=== PATIENT | female | born 1985 | race Caucasian/White ===

== ENCOUNTER 2019-01-26 19:52 | Emergency (ER) | payer MEDICAID, SELFPAY ==
[2019-01-26 19:54] VITALS: BP 150/79; PULSE 75; RESP 18; TEMP 36.8; O2SAT 97; BMI 37.0
--- NOTE | 2019-01-26 20:32 | RAD_ITS ---
STUDY: X-RAY - RIGHT WRIST REASON FOR EXAM: Female, 33 years old. Trauma TECHNIQUE: 3 view(s) of the wrist were obtained. COMPARISON: None. FINDINGS: Normal visualized distal radius and ulna. Normal radiocarpal articulation. Normal distal radioulnar articulation. Normal carpal bones. Normal carpal articulations. Normal carpometacarpal articulation of the thumb. Normal second through fifth carpometacarpal articulations. Normal visualized metacarpal bones. The soft tissue structures are unremarkable. RAD/Wrist min 3 Views IMPRESSION: Normal x-ray examination of the wrist. Electronically Signed: Aron Otero MD at 20:59 EST , Service support ,
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
[2019-01-26] MEDS: Diphth,Pertuss(Acell),Tet Vac 0.5 ML Vial IM (20:54)
[2019-01-26] MEDS: BACITRACIN 15 GM Tube 1 APPLIC TOPICAL (20:55)
== END 2019-01-26 22:12 | disposition home or self-care (01) ==
PROVIDERS: Emergency Provider Emergency Medicine
DX: S63.501A Unspecified sprain of right wrist, initial encounter (principal); S80.212A Abrasion, left knee, initial encounter; W17.89XA Other fall from one level to another, initial encounter; Y93.89 Activity, other specified; J30.2 Other seasonal allergic rhinitis
CPT/HCPCS: 73110; 90471; 90715; 99283

== ENCOUNTER → 2024-07-19 | Outpatient (CLI) | payer MEDICAID, SELFPAY ==
[2024-07-24 13:08] LABS: HPV APTIMA, High Risk Negative (Negative)
== END | disposition home or self-care (01) ==
PROVIDERS: Referring Provider Advanced Practice Midwife; Visit Provider Advanced Practice Midwife
DX: Z12.4 Encounter for screening for malignant neoplasm of cervix (principal)
CPT/HCPCS: 87624; 88175; G0145

== ENCOUNTER → 2024-08-11 | Outpatient (CLI) | payer MEDICAID, SELFPAY ==
--- NOTE | 2024-08-11 13:00 | BI_ITS ---
EXAM: SCRN MAMM (CAD)W/JAHAIRA BILAT 08/11/2024 CLINICAL HISTORY: F, Age 38 y/o , BREAST CANCER SCREENING TECHNIQUE: Bilateral screening digital breast tomosynthesis with 2D and 3D images. Computer aided detection. COMPARISON: Baseline examination, no priors FINDINGS: TISSUE DENSITY: The breast tissue is composed of scattered area of fibroglandular density. Bilateral Breast Mammographic Findings: There is a mass in the upper-outer right breast at middle depth. No significant masses, calcifications or other abnormalities are identified in the left breast. BI/SCRN MAMM (CAD)W/JAHAIRA BILAT IMPRESSION: The mass in the upper-outer right breast at middle depth requires further evalu ation. Recommend diagnostic ultrasound of the right breast. Right Breast: BIRADS 0 Incomplete: Need additional imaging evaluation and/or pr ior mammograms for comparison.. Left Breast: BIRADS 1 NEGATIVE. OVERALL FINAL ASSESSMENT: BIRADS 0 Incomplete: Need additional imaging evaluati on and/or prior mammograms for comparison.. RECOMMENDATION: Ultrasound. A letter with findings and recommendations will be mailed to the patient. Reading Location: [id number]
--- NOTE | 2024-08-11 13:39 | US_ITS ---
PROCEDURE: THYROID 08/11/2024 REASON FOR EXAM: ENLARGED THYROID TECHNIQUE: High-frequency thyroid ultrasound, including grayscale and color-flow images. REFERENCE LINKS: TI-RADS Chart: [email or web address] TI-RADS Calculator Tool with Reference Images: [email or web address] COMPARISON: None FINDINGS: Right thyroid lobe size: 5.1 x 1.3 x 1.7 cm Left thyroid lobe size: 5.4 x 1.1 x 1.7 cm Isthmus: 0.2 cm Background parenchymal echotexture is homogeneous. There are colloid cysts measuring 4 mm in the right lobe and 8 mm in the left lobe. US/Thyroid IMPRESSION: No suspicious thyroid nodularity. Reading Location: [id number]
--- OUTSIDE RECORDS SUMMARY | 2024-08-11 18:44 | XMS RPT_ITS | CCD ---
Author Organization [facility] Inform ion Partnership [facility] Care Team Providers Care Manager College Name Role Phone Unavailable Primary Care Provider CHRISTINE Russell Referring Unavailable Unavailable Primary Care Provider Unavailolvin e Care Physician, No Primary Primary Care Provider Unavailable Care Physician, No Primary Referring Provider Un available Jonas CARRIZALES, Digna Attending Provider Digna Mcdaniel CNM Referring Provider [phone] Care Physician, No Primary Primary Care Unava ilable Care Physician, No Primary Referring Unava ilable Digna Mcdaniel Attending Unavailable Care Physician, No Primary Primary Care Unava ilable Digna Mcdaniel Attending Unavailable Digna Mcdaniel Referring Unavailable Care Physician, No Primary Primary Care Unava ilable Digna Mcdaniel Attending Unavailable Digna Mcdaniel Referring Unavailable Allergies Allergy Classification Reported Allergen(s) Allergy Type Date of Onset Reaction(s) Facility (5 sources) Penicillin; Translations: [PENICILLIN] Drug Allergy 07-17-2017 [facility] (2 sources) Penicillins Allergy to substance 07-19-2024 [facility] (1 source) Penicillins Drug allergy (disorder) 07-19-2024 [facility] Medications Current Medications Medication Drug Class(es) Dates Sig (Normalized) Sig (Original) [id number] 200 actuat albuterol 0.09 mg/actuat metered dose inhaler (8 sources) beta2-Adrenergic Agonist Start: 12-02-2022 take 2 puff(s) by inhalation every four hours as needed for wheezing albuterol HFA (PROVENTIL HFA, VENTOLIN HFA) 90 mcg/actuation inhaler Indications: URI, acute Inhale 2 Puffs as instructed every 4 hours as needed for wheezing/shortnes s of breath. 1 Each 12/02/2022 Active Start: 06-08-2018 take 2 puff(s) by in halation every six hours as needed albuterol HFA (PROAIR HFA) 90 mcg/actuation inhaler Inhale 2 Puffs as instructed every 6 hours as needed. 1 Inhaler 06/08/2018 Active Comment on above: Inhale 2 Puffs as in structed every 6 hours as needed. Inhale 2 Puffs as in structed every 4 hours as needed for wheezing/shortness of breath. Cetirizine (4 sources) Histamine-1 Receptor Antagonist cetirizine HCl (ZYRTEC ORAL) Take by mouth. Active cetirizine HCl ( ZYRTEC ORAL) Take by mouth. 0 Active Comment on above: Take by mouth. erythromycin 0.005 mg/mg ophthalmic ointment (1 source) Macrolide, Macrolide Antimicrobial Start: 08-23-19 End: 08-30-19 erythromycin (ROMYCIN) 5 mg/gram (0.5 %) ophthalmic ointment Use 1 application in the left eye four times daily for 7 days. 3.5 g 0 08/23/2023 08/30/2023 Active fluticasone propionate 0.05 mg/actuat metered dose nasal spray (4 sources) Corticosteroid Start: 06-09-19 take 2 spray(s) by mouth once daily fluticasone (FLONASE) 50 mcg/actuation nasal spray Use 2 Sprays in each nostril once daily. Rinse mouth after use. 1 Bottle 06/08/2018 Active Comment on above: Use 2 Sprays in each nostril once daily. Rinse mouth after use. loratadine 10 mg oral tablet (2 sources) Start: 09-17-19 Loratadine (Allergy Relief (Loratadine)) 10 MG tablet Active 10 mg PO NEEDED as needed for Allergies September 16, 2016 12:00am Multivitamin 1 EACH tablet (2 sources) Start: 01-27-20 19 Multivitamin 1 EACH tablet Active 1 NMA PO DAILY January 26, 2019 1:00am naproxen sodium 220 mg oral capsule (2 sources) Nonsteroidal Anti-inflammatory Drug Start: 01-27-20 19 take 2 capsules by mouth once daily Naproxen Sodium 220 MG capsule Active 440 mg PO DAILY January 26, 2019 1:00am predniSONE 20 mg oral tablet (1 source) Start: 12-03-19 End: 12-08-19 23 take 2 tablets by mouth once daily predniSONE (DELTASONE) 20 mg tablet Indications: URI, acute Take 2 tablets by mouth once daily for 5 days. 10 tablet 0 12/02/2022 12/07/2022 Active Comment on above: Take 2 tablets by mo uth once daily for 5 days. Completed/Discontinued Medications Medication Drug Class(es) Dates Sig (Normalized) Sig (Original) benzonatate 100 mg oral capsule (2 sources) Non-narcotic Antitussive Start: 12-02-2022 End: 05-17-2023 take 2 capsules by mouth three times daily as needed benzonatate (TESSALON PERLE) 100 mg capsule Indications: URI, acute Take 2 capsules by mouth three times daily as needed. 30 capsule 0 12/02/2022 05/17/2023 Discontinued Comment on above: Take 2 capsules by m outh three times daily as needed. norethindrone 0.35 mg oral tablet (2 sources) Start: 09-16-2016 End: 09-23-2016 take 1 tablet by mouth once daily Norethindrone (Contraceptive) (Sharobel) 0.35 MG tablet Discontinued 0.35 mg PO DAILY September 16, 2016 12:00am September 23, 2016 12:46pm Problems Active Problems Problem Classification Problem Date Documented Date Episodic/Chronic Immunizations and screening for infectious disease (1 source) Exposure to streptococcal pharyngitis; Translations: [Contact with and (suspected) exposure to other bacterial communicable diseases] 05-17-2023 Episodic Inflammation; infection of eye (except that caused by tuberculosis or sexually transmitteddisease) (1 source) Hordeolum externum of upper eyelid of left eye; Translations: [Hordeolum externum left upper eyelid] 08-23-2023 Episodic Menstrual disorders (3 sources) Menorrhagia; Translations: [Excessive and frequent menstruation with regular cycle] Onset: 07-28-2024 07-19-2024 Chronic Nonmalignant breast conditions (5 sources) Breast lump; Translations: [Unspecified lump in unspecified breast] Onset: 08-08-2024 07-19-2024 Episodic Other screening for suspected conditions (not mental disorders or infectious disease) (2 sources) Encounter for screening for malignant neoplasm of cervix; Translations: [Encounter for screening for nutritional disorder] Onset: 07-25-2024 Episodic Other upper respiratory infections (1 source) Sore throat symptom; Translations: [Acute pharyngitis, unspecified] 05-17-2023 Episodic Sprains and strains (2 sources) Sprain of right wrist; Translations: [Unspecified sprain of right wrist, initial encounter] 01-27-2019 Episodic Thyroid disorders (3 sources) Goiter; Translations: [Nontoxic goiter, unspecified] Onset: 07-28-2024 07-19-2024 Chronic Past or Other Problems Problem Classification Problem Date Documented Da te Episodic/Chronic Unclassified (2 sources) Abrasion, left knee, initial encounter 01-27-2019 Results Test Name Value Interpretation Reference Range Facility PAP IG HPV APTIMA 16/18,45on 07-24-2024 ADEQ Comment Normal . [facility] Comment on above: Order Comment: Vlad cross Comment: [id number] Specimen Comment: No. of containers..01 ThinPrep Vial Result Comment: Sati sfactory for evaluation. Endocervical and/or squamous metaplastic cells (endocervical component) are present. Performed By: #### L 7400.0280 #### [facility] [address] [place], [place], [id number] COMM . Normal . [facility] Comment on above: Order Comment: Vlad cross Comment: [id number] Specimen Comment: No. of containers..01 ThinPrep Vial Performed By: #### L 7400.0280 #### [facility] [address] [place], [place], [id number] COMMENT Comment Normal . [facility] Comment on above: Order Comment: Vlad cross Comment: [id number] Specimen Comment: No. of containers..01 ThinPrep Vial Result Comment: This liquid based ThinPrep(R) pap test was screened with the use of an image guided system. Performed By: #### L 7400.0280 #### [facility] [address] [place], [address] DIAG Comment Normal . [facility] Comment on above: Order Comment: Vlda cross Comment: [id number] Specimen Comment: No. of containers..01 ThinPrep Vial Result Comment: NEGA TIVE FOR INTRAEPITHELIAL LESION OR MALIGNANCY. Performed By: #### L 7400.0280 #### [facility] [address] [place], [address] HPV APTIMA, HR Negative Normal Negative [facility] Comment on above: Order Comment: Speci men Comment: [id number] Specimen Comment: No. of containers..01 ThinPrep Vial Result Comment: This nucleic acid amplification test detects fourteen high- risk HPV types (16,18,31,33,35,39,45,51,52,56,58,59,66,68) without differentiation. Performed By: #### L 7400.0280 #### [facility] [address] [place], [address] HPV Karol Rfx Comment Normal . [facility] Comment on above: Order Comment: Speci men Comment: [id number] Specimen Comment: No. of containers..01 ThinPrep Vial Result Comment: Crit eria not met, HPV Genotype not performed. Performed at: - [facility] [id number] Machine Setter: Clementina Dunn MD, Phone: [phone] Performed at: = - [facility] [address] [id number] Machine Setter: Clementina Dunn MD, Phone: [phone] Performed By: #### L 7400.0280 #### [facility] [address] [place], [address] PAPSMR Comment Normal . [facility] Comment on above: Order Comment: Speci men Comment: [id number] Specimen Comment: No. of containers..01 ThinPrep Vial Result Comment: The Pap smear is a screening test designed to aid in the detection of premalignant and malignant conditions of the uterine cervix. It is not a diagnostic procedure and should not be used as the sole means of detecting cervical cancer. Both false-positive and false-negative reports do occur. Performed By: #### L 7400.0280 #### [facility] [address] [place], [place], [id number] PERFORM Comment Normal . [facility] Comment on above: Order Comment: Speci men Comment: [id number] Specimen Comment: No. of containers..01 ThinPrep Vial Result Comment: Stone Kiser, Dairy Feed Sales Consultant (ASCP) Performed By: #### L 7400.0280 #### [facility] [address] [place], [place], [address] Cervical or vaginal specimen microscopic examination by liquid based cytology (reportOrdered By: Digna Mcdaniel on 07-19-2024 Cytology report Cyto stain.thin prep Doc (Cvx/Vag) Comment . [facility] Comment on above: Criteria not met, HP V Genotype not performed.Performed at: - [facility] [id number] Director: Clementina Dunn MD, Phone: [phone] at: =[facility] [id number] Director: Clementina Dunn MD, Phone: [phone] Cervical or vagninal specime n microscopic examination by cytology stain (reported asOrdered By: Digna Mcdaniel on 07-19-2024 Cytology report Cyto stain Doc (Cvx/Vag) Comment . [facility] Comment on above: The Pap smear is a s creening test designed to aid in thedetection of premalignant and malignant conditions of theuterine cervix. It is not a diagnostic procedure andshould not be used as the sole means of detecting cervicalcancer. Both false-positive and false-negative reports dooccur. Detection in cervical specim en of any of human papilloma virus (HPV) 16, 18, 31, 33,Ordered By: Digna Mcdaniel on 07-19-2024 HPV 16+18+31+33+35+39+45+51 +52+56+58+59+66+68 DNA Probe+sig amp Ql (Cvx) Negative Negative [facility] Comment on above: This nucleic acid am plification test detects fourteen high-risk HPV types (16,18,31,33,35,39,45,51,52,56,58,59,66,68)without differentiation. Laboratory - CytologyOrdered By: Digna Mcdaniel on 07-19-2024 Dairy Feed Sales Consultant Cyto stain Nom (Cvx/Vag) [ID] Comment . [facility] Comment on above: Germán Kiser Cytolog ist (ASCP) Laboratory - Miscellaneous t estsOrdered By: Digna Mcdaniel on 07-19-2024 Service comment (Unsp spec) [Interp] . . [facility] No Panel InformationOrdered By: Digna Mcdaniel on 07-19-2024 Pap Smear Specimen Adequacy Comment . [facility] Comment on above: Satisfactory for rufino luation. Endocervical and/or squamous metaplasticcells (endocervical component) are present. Web Site Administrator Office Visit Reporton 07-19-2024 Web Site Administrator Office Visit Report [facility] [address], [address] [place] [address] OFFICE VISIT Date of Service: 07/19/24 MR#: [id number] Acct: [id number] Name: NICCI QURESHI Rep #: [id number] : 1985 Provider: ALL Stallworth ams Age/Sex: 38/F Location: [facility] [place] Status: Signed Intake Vital Signs 01/26/19 19:54 07/19/24 07:13 07/19/24 07:15 Height 5 ft 7 in 5 ft 9 in 5 ft 7 in Weight: 263 lb BMI 38.8 BP 123/76 H Intake Visit 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: 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) Science Analyst Required: No Is patient in pain?: No Allergies Penicillins Allergy (Verified 07/19/24 07:14) Rash Medications ???Medication ???Instructions ???Recorded ???Confirmed ???Type loratadine 10 mg tablet (Allergy 10 mg PO PRN PRN Allergies 7 07/19/24 History Relief (loratadine)) multivitamin 1 ea PO DAILY 01/26/19 07/19/24 Hi story naproxen sodium 220 mg capsule 440 mg PO DAILY 01/26/19 07/19/24 History Is last menstrual period known: Yes Last Menstrual Period: 06/21/24 Post menopausal: No Patient : No : No Do you think of yourself as: straight/heterosexual Current gender identity: female Control Method: tubal PFSH Surgical History (Updated 07/19/24 @ 07:31 by Natalya Rowe) H/O tubal ligation Family History (Updated 07/19/24 @ 07:30 by Natalya Rowe) Grandmother Breast cancer Father Heart disease Hypertension Social History adopted: No household members: family housing: house number of children: 4 current occupational status: employed current occupation: [employer] pets and animals: Yes pets and animals: cat(s) and dog(s) history of recent travel: No sexually active: Yes Smoking Status: Former smoker second hand exposure: No alcohol intake: current alcohol intake frequency: other details: 1/ week substance use type: does not use well-balanced diet: daily or most days caffeine: Yes Type: coffee Number of servings: 1 eating out: 4 or more times/week during the past year weight has: remained stable yuliya/jain: Taoism seatbelt use: sometimes do you feel safe at home: Yes additional social history: - Luke History Elective abortions Hx Para 2 Spontaneous abortions Hx # Term Pregnancies Ectopic pregnancies Hx # Pregnancies Multiple births # of living children HPI 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 concerns with increasingly heavy menses. lasting about 8 days and still regular. does have to wear double protection the first couple days of menses. Is not bothersome enough for work up yet but will consider if it starts to get heavier or longer in duration. would also like to discuss increased weight gain. encouraged tracking food intake and activity-consider intermittent fasting. does not currently track but is active outside for work-has [employer]. discussed starting these and getting on weight management wait list with office. Last PAP: 2016 History of abnormal PAP: no Last mammogram: age 39-ordered History of abnormal mammogram: no Colon cancer screening: age 44 Other preventative health care screenings: ordered. Female Reproductive History Last Menstrual Period: 06/21/24 Cycle Length: 21-35 Bleeding Duration: 8 Frequency of changing protection: 4 hours Questions: metorrhagia: No, sexually active: Yes, dyspareunia: No and PCB: No ROS Const Constitutional: Reports system reviewed and no additional complaints, except as documented Cardio Card: Reports system reviewed and no additional complaints, except as documented Resp Resp: Reports system reviewed and no additional complaints, except as documented GI GI: Reports system reviewed and no additional complaints, except as documented : Reports system reviewed and no additional complaints, except as documented; Denies difficulty voiding, dysuria or urinary frequency Skin Skin/Breast: Reports system reviewed and no additional complaints, except as documented Neuro Neuro: Reports system reviewed and no additional complaints, except as documented Psych Psych: Reports system reviewed and no additional complaints, except as documented; Denies anhedonia, anxiety or depression Exam Const General: cooperative, healthy appearing, comfortable and no acute distress Orientation: alert, awake and oriented x3 Neck Neck: normal visual inspection and full ROM Thyroid: diffusely enlarged Chest Breast inspection: normal inspection of the breasts and normal inspection of the axillae Breast palpation: normal palpation of the breasts and normal palpation of the axillae Resp Effort Inspection: normal respiratory effort, able to speak in complete sentences and symmetric chest movement G (more content not included)... Normal [facility] 08-23-2023 [facility] Office Visit (UCWSTR ) NICCI QURESHI ([id number]) 1985 F Date Time Provider Department 08/23/23 6:45 PM NAVID ANDREWS [facility] During your visit today, we recorded the following information about you: Temperature Pulse Respiration Blood pressure 97.3 degrees 63/minute 16/minute 122/63 Weight 114.8 kg Navid Andrews APRN.CNP 08/23/2023 6:52 PM Signed This note was created using NoteWriter. Subjective Nicci Qureshi is a 37 year old female. 37 year old female with no PMH presents for eye complaints. Acute onset one month ago Left upper eye lid +red bump At times uncomfortable Denies loss of vision, double vision or blurred vision Denies feelings of FB Denies fever or chills Denies drainage Denies URI sx Wear contacts and corrective lens Endorses she has allowed warm water to run on her eye, Otherwise denies seeking medical treatment for same Eye doctor is through [facility] The history is provided by the patient. No extrusion operator was used. Eye Problem This is a new problem. The current episode started 1 to 4 weeks ago. The problem occurs constantly. The problem has been unchanged. Pertinent negatives include no abdominal pain, anorexia, arthralgias, change in bowel habit, chest pain, chills, congestion, coughing, diaphoresis, fatigue, fever, headaches, joint swelling, myalgias, nausea, neck pain, numbness, rash, sore throat, swollen glands, urinary symptoms, vertigo, visual change, vomiting or weakness. Nothing aggravates the symptoms. Treatments tried: allowing warm water to run on area. The treatment provided no relief. No past medical history on file. No past surgical history on file. ALLERGIES Penicillin MEDICATIONS albuterol HFA (PROVENTIL HFA, VENTOLIN HFA) 90 mcg/actuation inhaler Inhale 2 Puffs as instructed every 4 hours as needed for wheezing/shortness of breath. cetirizine HCl (ZYRTEC ORAL) Take by mouth. albuterol HFA (PROAIR HFA) 90 mcg/actuation inhaler Inhale 2 Puffs as instructed every 6 hours as needed. fluticasone (FLONASE) 50 mcg/actuation nasal spray Use 2 Sprays in each nostril once daily. Rinse mouth after use. erythromycin (ROMYCIN) 5 mg/gram (0.5 %) ophthalmic ointment Use 1 application in the left eye four times daily for 7 days. No family history on file. Social History Tobacco Use Smoking status: Never Smokeless tobacco: Never Review of Systems Constitutional: Negative for chills, diaphoresis, fatigue and fever. HENT: Negative for congestion and sore throat. Eyes: Negative for photophobia, pain, discharge, redness, itching and visual disturbance. Bump left upper eyelid Respiratory: Negative for cough. Cardiovascular: Negative for chest pain. Gastrointestinal: Negative for abdominal pain, anorexia, change in bowel habit, nausea and vomiting. Musculoskeletal: Negative for arthralgias, joint swelling, myalgias and neck pain. Skin: Negative for rash. Neurological: Negative for vertigo, weakness, numbness and headaches. Objective BP 122/63 Pulse 63 Temp 36.3 ?C (97.3 ?F) Resp 16 Wt 114.8 kg (253 lb 1.4 oz) SpO2 97% Physical Exam Vitals and nursing note reviewed. Constitutional: General: She is not in acute distress. Appearance: Normal appearance. She is normal weight. She is not ill-appearing, toxic-appearing or diaphoretic. HENT: Head: Normocephalic and atraumatic. Right Ear: Ear canal and external ear normal. Left Ear: Ear canal and external ear normal. Nose: Nose normal. No congestion or rhinorrhea. Mouth/Throat: Mouth: Mucous membranes are moist. Pharynx: No oropharyngeal exudate or posterior oropharyngeal erythema. Eyes: General: Right eye: No discharge. Left eye: No discharge. Extraocular Movements: Extraocular movements intact. Conjunctiva/sclera: Conjunctivae normal. Pupils: Pupils are equal, round, and reactive to light. Comments: Left upper eyelid with external hordeolum noted NO drainage NO streaking No crepitus Vision grossly intact EOM intact Cardiovascular: Rate and Rhythm: Normal rate and regular rhythm. Pulses: Normal pulses. Heart sounds: Normal heart sounds. No murmur heard. No friction rub. Pulmonary: Effort: Pulmonary effort is normal. No respiratory distress. Breath sounds: Normal breath sounds. No stridor. No wheezing, rhonchi or rales. Chest: Chest wall: No tenderness. Abdominal: General: Abdomen is flat. There is no distension. Palpations: Abdomen is soft. There is no mass. Tenderness: There is no abdominal tenderness. There is no right CVA tenderness, left CVA tenderness, guarding or rebound. Hernia: No hernia is present. Musculoskeletal: General: No swelling, tenderness, deformity or signs of injury. Normal range of motion. Cervical back: Normal range of motion and neck supple. No rigidity. Right lower leg: No edema. Left low (more content not included)... Normal [facility] 05-17-2023 [facility] Office Visit (UCWSTR ) NICCI QURESHI ([id number]) 1985 F Date Time Provider Department 05/17/23 9:15 AM ROGE VENCES [facility] During your visit today, we recorded the following information about you: Temperature Pulse Respiration Blood pressure 97.4 degrees 80/minute 21/minute 122/78 Weight 119.5 kg Roge Vences MD 05/17/2023 9:40 AM Signed Patient presents with: Sore Throat HPI: Feeling sore throat for a couple days. Her sons tested positive for strep throat this morning. Positive symptoms: mild Cough, Sore throat, mild Nasal Congestion, Negative symptoms: Fever, Chills, Vomiting, Diarrhea, OTC: tea No past medical history on file. MEDICATIONS: Current Outpatient Medications Medication Sig albuterol HFA (PROVENTIL HFA, VENTOLIN HFA) 90 mcg/actuation inhaler Inhale 2 Puffs as instructed every 4 hours as needed for wheezing/shortness of breath. cetirizine HCl (ZYRTEC ORAL) Take by mouth. albuterol HFA (PROAIR HFA) 90 mcg/actuation inhaler Inhale 2 Puffs as instructed every 6 hours as needed. fluticasone (FLONASE) 50 mcg/actuation nasal spray Use 2 Sprays in each nostril once daily. Rinse mouth after use. No current facility-administered medications for this visit. ALLERGIES: ALLERGIES Allergen Reactions Penicillin Rash VITALS: BP 122/78 Pulse 80 Temp 36.3 ?C (97.4 ?F) Resp 21 Wt 119.5 kg (263 lb 7.2 oz) SpO2 98% PHYSICAL EXAM: GEN: Pleasant, in no acute distress. HEENT: PERRL, EOMI, conjunctiva clear Ears: canals clear. TMs without erythema, bulge, or effusion Sinuses: non-tender frontal sinus, non-tender maxillary sinuses Throat: moist mucous membranes, mild erythema, no exudate Neck: supple, no thyromegaly, no lymphadenopathy HEART: regular rate and rhythm, no murmurs LUNGS: clear to auscultation, no wheezes or crackles, no increased WOB ASSESSMENT/PLAN: 1. Sore throat - ICD9: 462, ICD10: J02.9 (primary diagnosis) 2. Exposure to strep throat - ICD9: V01.89, ICD10: Z20.818 Would like to rule out strep throat. - STREP A MOLECULAR (POC) - negative. Expectant management. Roge Vences MD Allergies As of Date: 05/17/2023 Noted Allergy Reaction PENICILLIN 07/17/2017 2 - Rash Date Reviewed: 05/17/2023 Reviewed by: Bebe Craig MA - Fully Assessed Reason for Visit: Sore Throat [200] Primary Visit Diagnosis:Sore throat [J02.9] Other Visit Diagnosis:Exposure to strep throat [Z20.818] Order(s):STREP A MOLECULAR (POC) [6350749] Order #: [id number]. #:[id number] Prescriptions as of 05/17/2023 - albuterol HFA (PROVENTIL HFA, VENTOLIN HFA) 90 mcg/actuation inhaler Inhale 2 Puffs as instructed every 4 hours as needed for wheezing/shortness of breath. - cetirizine HCl (ZYRTEC ORAL) Take by mouth. - albuterol HFA (PROAIR HFA) 90 mcg/actuation inhaler Inhale 2 Puffs as instructed every 6 hours as needed. - fluticasone (FLONASE) 50 mcg/actuation nasal spray Use 2 Sprays in each nostril once daily. Rinse mouth after use. Problem List As Of Date: 05/17/2023 (None) Medications Discontinued During This Encounter Prescriptions - benzonatate (TESSALON PERLE) 100 mg capsule (Discontinued) Reported on 05/17/2023 Encounter Status:Closed by ROGE VENCES on 05/17/23 Normal [facility] STREP A MOLECULAR (POC)on Procedural Control Valid [facility] St[facility] (POCT) [facility] Telephone (UCWSTR) NICCI QURESHI ([id number]) 1985 F Date Time Provider Department 12/04/22 LARISA LIANG During your visit today, we recorded the following information about you: Manny Henry MA 12/04/2022 9:39 AM Signed ----- Message from Larisa Liang APRN.COOLER WORKER sent at 12/04/2022 9:05 AM EDT ----- Please advise patient the COVID, flu, and RSV test is negative. (Not viewed in MyChart). Manny Henry MA 12/04/2022 9:41 AM Signed Left VM instructing patient to return call to receive results. Manny Henry MA Allergies As of Date: 12/04/2022 Noted Allergy Reaction PENICILLIN 07/17/2017 2 - Rash Date Reviewed: 12/02/2022 Reviewed by: Christine Torres APRN.COOLER WORKER - Fully Assessed Reason for Visit: Results [95] Prescriptions as of 12/04/2022 - predniSONE (DELTASONE) 20 mg tablet Take 2 tablets by mouth once daily for 5 days. - benzonatate (TESSALON PERLE) 100 mg capsule Take 2 capsules by mouth three times daily as needed. - albuterol HFA (PROVENTIL HFA, VENTOLIN HFA) 90 mcg/actuation inhaler Inhale 2 Puffs as instructed every 4 hours as needed for wheezing/shortness of breath. - cetirizine HCl (ZYRTEC ORAL) Take by mouth. - albuterol HFA (PROAIR HFA) 90 mcg/actuation inhaler Inhale 2 Puffs as instructed every 6 hours as needed. - fluticasone (FLONASE) 50 mcg/actuation nasal spray Use 2 Sprays in each nostril once daily. Rinse mouth after use. Problem List As Of Date: 12/04/2022 (None) Encounter Status:Closed by MANNY HENRY on 12/04/22 [facility] CNOVon 12-02-2022 CNOV Office Visit (UCWSTR ) NICCI QURESHI ([id number]) 1985 F Date Time Provider Department 12/02/22 5:00 PM CHRISTINE TORRES [facility] During your visit today, we recorded the following information about you: Temperature Pulse Respiration Blood pressure 98.2 degrees 86/minute 18/minute 118/82 Weight 116.8 kg Christine Torres APRN.COOLER WORKER 12/02/2022 5:52 PM Signed Subjective HPI HPI Nicci Qureshi is a 37 year old female who presents today for CC of cough, congestion, sneezing. This started 4 days ago. Has tried otc medication for relief. Symptoms are worsened by nothing. Risk factors sick exposures at home. Nonsmoker. Denies possibility of being . .Patient presents with: Cough: Cough, congestion and sneezing x 4 days History reviewed. No pertinent past medical history. No past surgical history on file. ALLERGIES Penicillin MEDICATIONS cetirizine HCl (ZYRTEC ORAL) Take by mouth. albuterol HFA (PROAIR HFA) 90 mcg/actuation inhaler Inhale 2 Puffs as instructed every 6 hours as needed. fluticasone (FLONASE) 50 mcg/actuation nasal spray Use 2 Sprays in each nostril once daily. Rinse mouth after use. No family history on file. Social History Tobacco Use Smoking status: Never Smokeless tobacco: Never Review of Systems Constitutional: Positive for malaise/fatigue. Negative for fever. HENT: Positive for congestion and sore throat. Negative for ear pain and nosebleeds. Respiratory: Positive for cough and sputum production. Negative for shortness of breath and wheezing. Cardiovascular: Negative for chest pain. Gastrointestinal: Negative for diarrhea and vomiting. Musculoskeletal: Negative for neck pain. Skin: Negative for itching and rash. Objective Blood pressure 118/82, pulse 86, temperature 36.8 ?C (98.2 ?F), temperature source Tympanic, resp. rate 18, weight 116.8 kg (257 lb 9.6 oz), SpO2 97 %. Physical Exam Constitutional: General: She is not in acute distress. Appearance: She is not toxic-appearing or diaphoretic. HENT: Head: Normocephalic and atraumatic. Right Ear: External ear normal. Nose: Nose normal. Mouth/Throat: Pharynx: Uvula midline. No pharyngeal swelling, oropharyngeal exudate, posterior oropharyngeal erythema or uvula swelling. Eyes: General: Lids are normal. No scleral icterus. Right eye: No discharge. Left eye: No discharge. Conjunctiva/sclera: Conjunctivae normal. Pupils: Pupils are equal, round, and reactive to light. Neck: Trachea: Trachea normal. Cardiovascular: Rate and Rhythm: Normal rate and regular rhythm. Heart sounds: Normal heart sounds. Pulmonary: Effort: Pulmonary effort is normal. Breath sounds: Normal breath sounds. Musculoskeletal: Cervical back: Normal range of motion and neck supple. Lymphadenopathy: Cervical: No cervical adenopathy. Right cervical: No superficial cervical adenopathy. Left cervical: No superficial cervical adenopathy. Skin: Findings: No rash. Neurological: Mental Status: She is alert and oriented to person, place, and time. ASSESSMENT/PLAN: 1. URI, acute - ICD9: 465.9, ICD10: J06.9 (primary diagnosis) - Discussed viral etiology and rationale for treatment. - Symptomatic treatment with prn analgesia - Supportive care with fluids and rest - Follow up in 3-5 days if symptoms persist or sooner if worsening of symptoms - PREDNISONE 20 MG TABLET - BENZONATATE 100 MG CAPSULE - ALBUTEROL SULFATE HFA 90 MCG/ACTUATION AEROSOL INHALER 2. Acute cough - ICD9: 786.2, ICD10: R05.1 Xray negative - XR CHEST 2V FRONTAL/LAT IMPRESSION: No acute radiographic abnormality. Dictated by : JOSÉ FAY MD - COVID AND INFLUENZA A/B AND RSV NAAT, ROUTINE - COVID NAAT, UPPER RESPIRATORY, ROUTINE - ROUTINE FLU A/B + RSV Christine Torres APRN.COOLER WORKER Allergies As of Date: 12/02/2022 Noted Allergy Reaction PENICILLIN 07/17/2017 2 - Rash Date Reviewed: 12/02/2022 Reviewed by: Christine Torres APRN.COOLER WORKER - Fully Assessed Reason for Visit: Cough [28] Cmt: Cough, congestion and sneezing x 4 days Primary Visit Diagnosis:URI, acute [J06.9] Other Visit Diagnosis:Acute cough [R05.1] Order(s):XR CHEST 2V FRONTAL/LAT [[id number]] Order #: [id number]. #:[id number] COVID AND INFLUENZA A/B AND RSV NAAT, ROUTINE [SQCVFLRS] Order #: [id number]. #:[id number] COVID NAAT, UPPER RESPIRATORY, ROUTINE [SQCOVID] Reflex Order#: [id number] (Ord#:[id number])Spec . #:[id number] ROUTINE FLU A/B + RSV [SQRTFRSV] Reflex Order#: [id number] (Ord#:[id number])Spec . #:[id number] predniSONE (DELTASONE) 20 mg tabletTake 2 tablets by mouth once daily for 5 days.Disp: 10 tabletRfl: 0 benzonatate (TESSALON PERLE) 100 mg capsuleTake 2 capsules by mouth three times daily as needed.Disp: 30 capsuleRfl: 0 albuterol HFA (PROVENTIL HFA, VENTOLIN HFA) 90 mcg/actuation inhalerInhale 2 Puff (more content not included)... Normal [facility] ROUTINE FLU A/B + RSVon 11-07 FLUAV RNA RITA+probe Ql (Unsp spec) Not detected Normal Not Detected [facility] Comment on above: Order Comment: Speci men Type: SWAB OF INTERNAL NOSE Ordering Facility: [facility] Address: [address] [place] [address] Performed By: #### 9 4500-6, RTFRSV #### [facility] CLIA [id number] [address] STATES OF [facility] FLUBV RNA RITA+probe Ql (Unsp spec) Not detected Normal Not Detected [facility] Comment on above: Order Comment: Speci men Type: SWAB OF INTERNAL NOSE Ordering Facility: [facility] Address: [address] [place] [address] Performed By: #### 9 4500-6, RTFRSV #### [facility] CLIA [id number] [address] [place] [address] [place] RSV A RNA RITA+probe Ql (Unsp spec) Not detected Normal Not Detected [facility] Comment on above: Order Comment: Speci men Type: SWAB OF INTERNAL NOSE Ordering Facility: [facility] Address: [address] [place] [address] Performed By: #### 9 4500-6, RTFRSV #### [facility] CLIA [id number] [address] [place] [address] [place] SARS-CoV-2 RNA Resp Ql RITA+p robeon 12-02-2022 SARS-CoV-2 (COVID-19) RNA RITA+probe Ql (Resp) COVID 19 RESULT: Not detected The method used is RT-PCR or an equivalent NAAT method. Reference Range (the expected result in uninfected individuals): Not detected Normal [facility] Comment on above: Performed By: #### 9 4500-6, RTFRSV #### [facility] IA [id number] [address] [place] [address] [place] XR CHEST 2V FRONTAL/LATon XR CHEST 2V FRONTAL/LAT * * *Final Repor t* * * DATE OF EXAM: Dec 02 2022 5:30PM WOX 5291 - XR CHEST 2V FRONTAL/LAT / PROCEDURE REASON: Acute cough * * * * Physician Interpretation * * * * EXAMINATION: CHEST RADIOGRAPH (2 VIEW FRONTAL and LATERAL) CLINICAL HISTORY: Acute cough MQ: XC2_6 EXAM DATE/TIME: 12/02/2022 5:30 PM COMPARISON: No relevant prior studies available. RESULT: Lines, tubes, and devices: None. Lungs and pleura: No consolidation. No lung mass. No pleural effusion. No pneumothorax. Cardiomediastinal silhouette: Normal cardiomediastinal silhouette. Bones and soft tissues: Unremarkable. IMPRESSION: No acute radiographic abnormality. Director Business Development: PSCB Transcribe Date/Time: Dec 02 2022 5:33P Dictated by : JOSÉ FYA MD This examination was interpreted and the report reviewed and electronically signed by: JOSÉ FAY MD on Dec 02 2022 5:33PM EST [id number] Normal [facility] XR Chest PA and Lateralon IMPRESSION: No acute radiographic abnormality. Director Business Development: UMESH Transcribe Date/Time: Dec 02 2022 5:33P Dictated by : JOSÉ FAY MD This examination was interpreted and the report reviewed and electronically signed by: OJSÉ FAY MD on Dec 02 2022 5:33PM EST DIVISION OF RADIOLOGY * * *Final Report* * * DATE OF EXAM: Dec 02 2022 5:30PM WOX 5291 - XR CHEST 2V FRONTAL/LAT / PROCEDURE REASON: Acute cough * * * * Physician Interpretation * * * * EXAMINATION: CHEST RADIOGRAPH (2 VIEW FRONTAL & LATERAL) CLINICAL HISTORY: Acute cough MQ: XC2_6 EXAM DATE/TIME: 12/02/2022 5:30 PM COMPARISON: No relevant prior studies available. RESULT: Lines, tubes, and devices: None. Lungs and pleura: No consolidation. No lung mass. No pleural effusion. No pneumothorax. Cardiomediastinal silhouette: Normal cardiomediastinal silhouette. Bones and soft tissues: Unremarkable. DIVISION OF RADIOLOGY Provider, [facility] - 12/02/2022 * * *Final Report* * * DATE OF EXAM: Dec 02 2022 5:30PM WOX 5291 - XR CHEST 2V FRONTAL/LAT / PROCEDURE REASON: Acute cough * * * * Physician Interpretation * * * * EXAMINATION: CHEST RADIOGRAPH (2 VIEW FRONTAL & LATERAL) CLINICAL HISTORY: Acute cough MQ: XC2_6 EXAM DATE/TIME: 12/02/2022 5:30 PM COMPARISON: No relevant prior studies available. RESULT: Lines, tubes, and devices: None. Lungs and pleura: No consolidation. No lung mass. No pleural effusion. No pneumothorax. Cardiomediastinal silhouette: Normal cardiomediastinal silhouette. Bones and soft tissues: Unremarkable. IMPRESSION IMPRESSION: No acute radiographic abnormality. Director Business Development: UMESH Transcribe Date/Time: Dec 02 2022 5:33P Dictated by : JOSÉ FAY MD This examination was interpreted and the report reviewed and electronically signed by: JOSÉ FAY MD on Dec 02 2022 5:33PM EST [facility] Radiology Study observation (narrative) Mell corbett [facility] XR Chest PA and LateralOrder ed By: [facility]cf Provider on 12-02-2022 [facility] Vital Signs Date Time Vital Sign Value Performing Clinician Facility 07-19-2024 07:15-0400 Body height 170.18 cm No Primary Care Physician [facility] 07-19-2024 07:13-0400 Body mass index (BMI) [Ratio] 38.8 kg/m2 No Primary Care Physician [facility] 07-19-2024 07:13-0400 Body weight 119.29 kg No Primary Care Physician [facility] 07-19-2024 07:13-0400 Diastolic blood pressure 76 mm[Hg] No Primary Care Physician [facility] 07-19-2024 07:13-0400 Systolic blood pressure 123 mm[Hg] No Primary Care Physician [facility] 08-23-2023 18:43-0400 Body temperature 97.3 [degF] Navid Andrews SOLE ROUNDER.COOLER WORKER Work Phone: [facility] 08-23-2023 18:43-0400 Body weight 114.8 kg Navid Andrews SOLE ROUNDER.COOLER WORKER Work Phone: [facility] 08-23-2023 18:43-0400 Diastolic blood pressure 63 mm[Hg] Navid Andrews SOLE ROUNDER.COOLER WORKER Work Phone: [facility] 08-23-2023 18:43-0400 Heart rate 63 /min Navid Andrews SOLE ROUNDER.COOLER WORKER Work Phone: [facility] 08-23-2023 18:43-0400 Respiratory rate 16 /min Navid Andrews SOLE ROUNDER.COOLER WORKER Work Phone: [facility] 08-23-2023 18:43-0400 SaO2% (BldA) [Mass fraction] 97 % Anvid Andrews SOLE ROUNDER.COOLER WORKER Work Phone: [facility] 08-23-2023 18:43-0400 Systolic blood pressure 122 mm[Hg] Navid Sheldon BARLOWCOOLER WORKER Work Phone: [facility] 05-17-2023 09:25-0400 Body temperature 97.39 [degF] Roge Vences MD Work Phone: [facility] 05-17-2023 09:25-0400 Body weight 119.5 kg Roge Vences MD Work Phone: [facility] 05-17-2023 09:25-0400 Diastolic blood pressure 78 mm[Hg] Roge Vences MD Work Phone: [facility] 05-17-2023 09:25-0400 Heart rate 80 /min Roge Vences MD Work Phone: [facility] 05-17-2023 09:25-0400 Respiratory rate 21 /min Roge Vences MD Work Phone: [facility] 05-17-2023 09:25-0400 SaO2% (BldA) [Mass fraction] 98 % Roge Vences MD Work Phone: [facility] 05-17-2023 09:25-0400 Systolic blood pressure 122 mm[Hg] Roge Vences MD Work Phone: [facility] Encounters Encounter Date Encounter Type Care Provider Facility Start: 08-11-2024 ambulatory No Primary Car e Physician Facility:[facility] Start: 07-28-2024 Encounter for gynecological examination (general) (routine) without abnormal findings Digna Mcdaniel [facility] Start: 07-19-2024 End: 07-19-2024 ambulatory No Primary Care Physician [facility] Work Phone: Start: 07-19-2024 End: 07-19-2024 Patient encounter procedure Digna Mcdaniel CNM -Laboratory Specimen Work Phone: Start: 07-19-2024 End: 07-19-2024 Patient encounter procedure [facility] Start: 07-19-2024 End: 07-19-2024 ambulatory No Primary Care Physician [facility] Work Phone: Start: 07-19-2024 End: 07-19-2024 ambulatory No Primary Care Physician Facility:[facility] Start: 08-23-2023 End: 08-23-2023 ambulatory [facility] Facility:[facility] Start: 08-23-2023 End: 08-23-2023 Patient encounter procedure Navid Andrews SOLE ROUNDER.COOLER WORKER Work Phone: [facility] Comment on above: Hordeolum externum o f left upper eyelid (Primary Dx) Start: 05-17-2023 End: 05-17-2023 ambulatory [facility] Facility:[facility] Start: 05-17-2023 End: 05-17-2023 Patient encounter procedure Roge Vences MD Work Phone: [facility] Comment on above: Sore throat (Primary Dx); Exposure to strep throat Start: 12-04-2022 Telephone encounter Larisa Andrea APRN.COOLER WORKER Work Phone: [facility] Comment on above: Results Start: 12-02-2022 End: 12-02-2022 [facility] Comment on above: Acute cough [R05.1] Start: 12-02-2022 End: 12-02-2022 ambulatory [facility] Facility:[facility] Procedures Date Procedure Procedure Detail Performing Clinician Start: 07-19-2024 Liquid based cervica l cytology screening No Primary Care Physician Comment on above: NEGATIVE FOR INTRAEP ITHELIAL LESION OR MALIGNANCY. This liquid based Th inPrep(R) pap test was screened withthe use of an image guided system. Start: 05-17-2023 STREP A MOLECULAR (POC) Roge Vences MD Work Phone: Start: 12-02-2022 Radiologic exam ches t [address] SOLE ROUNDER.COOLER WORKER Work Phone: Plan of Treatment Date Care Activity Detail Author Start: 01-26-2029 Urine microalbumin profile DTaP,Tdap,Td Vaccine (3 - Td or Tdap) [facility] Start: 11-07-2023 Covid-19 Vaccine ( season) Covid-19 Vaccine () [facility] Start: 11-07-2023 Influenza vaccination [facility] Start: 03-08-2023 Behavioral Health Screening Behavioral Health Screening [facility] Start: 03-08-2023 Depression Assessment Depression Ass essment [facility] Start: 11-06-2022 Covid-19 Vaccine () Covid-19 Vaccine () [facility] Start: 11-06-2022 Influenza vaccination Influenza Vacc ine (#1) [facility] Start: 03-08-2022 Depression [facility] Start: 2014 HPV Testing HPV Testing [facility] Start: 2014 Screening for malign ant neoplasm of cervix HPV Testing [facility] Start: 2005 Pap Testing Pap Testing [facility] Start: 2005 Screening for malign ant neoplasm of cervix [facility] Start: 09-13-2003 Hepatitis B Vaccine (1 of 3 - 19+ 3-dose series) Hepatitis B Vaccine (1 of 3 - 19+ 3-dose series) [facility] Start: 09-13-2003 Urine microalbumin profile DTaP,Tdap,Td Vaccine (1 - Tdap) [facility] Start: 2002 Anxiety Screening Anxiety Screening [facility] Start: 2002 Depression Screening Depression Scre [facility] Start: 2002 Hepatitis C Screening Hepatitis C [facility] Start: 2002 Hepatitis C screening Hepatitis C [facility] Start: 2002 HIV Screening HIV Screening [facility] Start: 2002 HIV screening HIV Screening [facility] Start: 03-15-1985 Covid-19 Vaccine (#1) Covid-19 Vacci ne (#1) [facility] Start: 1984 Hepatitis B Vaccine (1 of 3 - 3-dose series) Hepatitis B Vaccine (1 of 3 - 3-dose series) [facility] CBC W Auto Different ial panel - Blood [facility] Lipid 1996 panel - S hannah or Plasma [facility] Liquid based cervica l cytology screening [facility] MG Breast - bilatera l Diagnostic [facility] Thyroid stimulating hormone measurement [facility] US Thyroid gland [facility] Vitamin D, 25-hydrox y measurement [facility] Immunizations Immunization Date Immunization Notes Care Provider Hany dominguez 01-26-2019 tetanus toxoid, redu sukhjinder diphtheria toxoid, and acellular pertussis vaccine, adsorbed No Primary Care Physician [facility] Payers Date Payer Category Payer Self-pay 2022 Medicaid [id number] 2016 Medicaid [id number] 2016 Unknown [facility] PLAN [id number] Unknown [id number] Unknown [id number] Unknown [id number] Social History Date Type Detail Facility [facility]: [facility] Start: 12-02-2022 Tobacco use and exposure Smokeless tobacco non-user [facility] Start: 02-15-2020 End: 12-02-2022 History of Social function [facility] Start: 02-15-2020 End: 12-02-2022 Tobacco use panel [facility] National Score (1-10 0), lower number is lower risk Not on file [facility] Start: 1985 Sex Assigned At Not on file [facility] Start: 07-19-2024 Tobacco smoking stat us ARIS Ex-smoker (finding) [facility] Start: 1985 Sex Assigned At Female [facility] Sexual Orientation Heterosexual (finding) [facility] Clinical Notes 12-02-2022 to 07-19-2024 Note Date & Type Note Facility 07-19-2024 Evaluation note Diagnosis Onset Date Resolution Breast lump in female acute July 19, 2024 7:01am Encounter for well woman exam with routine gynecological exam acute July 19 7:01am [facility] Work Phone: 1(988) 755-416706-17-2024 NoteHNO ID: [id number] Author: NAVID ANDREWS APRN.DIPESH Service: ? Author Type: Nurse Practitioner Type: Progress Notes Filed: 08/23/2023 18:52 Note Text: This note was created using NoteWriter. Subjective Nicci Qureshi is a 37 year old female. 37 year old female with no PMH presents for eye complaints. Acute onset one month ago Left upper eye lid +red bump At times uncomfortable Denies loss of vision, double vision or blurred vision Denies feelings of FB Denies fever or chills Denies drainage Denies URI sx Wear contacts and corrective lens Endorses she has allowed warm water to run on her eye, Otherwise denies seeking medical treatment for same Eye doctor is through [facility] The history is provided by the patient. No extrusion operator was used. Eye Problem This is a new problem. The current episode started 1 to 4 weeks ago. The problem occurs constantly. The problem has been unchanged. Pertinent negatives include no abdominal pain, anorexia, arthralgias, change in bowel habit, chest pain, chills, congestion, coughing, diaphoresis, fatigue, fever, headaches, joint swelling, myalgias, nausea, neck pain, numbness, rash, sore throat, swollen glands, urinary symptoms, vertigo, visual change, vomiting or weakness. Nothing aggravates the symptoms. Treatments tried: allowing warm water to run on area. The treatment provided no relief. No past medical history on file. No past surgical history on file. ALLERGIES Penicillin MEDICATIONS albuterol HFA (PROVENTIL HFA, VENTOLIN HFA) 90 mcg/actuation inhaler Inhale 2 Puffs as instructed every 4 hours as needed for wheezing/shortness of breath. cetirizine HCl (ZYRTEC ORAL) Take by mouth. albuterol HFA (PROAIR HFA) 90 mcg/actuation inhaler Inhale 2 Puffs as instructed every 6 hours as needed. fluticasone (FLONASE) 50 mcg/actuation nasal spray Use 2 Sprays in each nostril once daily. Rinse mouth after use. erythromycin (ROMYCIN) 5 mg/gram (0.5 %) ophthalmic ointment Use 1 application in the left eye four times daily for 7 days. No family history on file. Social History Tobacco Use Smoking status: Never Smokeless tobacco: Never Review of Systems Constitutional: Negative for chills, diaphoresis, fatigue and fever. HENT: Negative for congestion and sore throat. Eyes: Negative for photophobia, pain, discharge, redness, itching and visual disturbance. Bump left upper eyelid Respiratory: Negative for cough. Cardiovascular: Negative for chest pain. Gastrointestinal: Negative for abdominal pain, anorexia, change in bowel habit, nausea and vomiting. Musculoskeletal: Negative for arthralgias, joint swelling, myalgias and neck pain. Skin: Negative for rash. Neurological: Negative for vertigo, weakness, numbness and headaches. Objective BP 122/63 Pulse 63 Temp 36.3 ?C (97.3 ?F) Resp 16 Wt 114.8 kg (253 lb 1.4 oz) SpO2 97% Physical Exam Vitals and nursing note reviewed. Constitutional: General: She is not in acute distress. Appearance: Normal appearance. She is normal weight. She is not ill-appearing, toxic-appearing or diaphoretic. HENT: Head: Normocephalic and atraumatic. Right Ear: Ear canal and external ear normal. Left Ear: Ear canal and external ear normal. Nose: Nose normal. No congestion or rhinorrhea. Mouth/Throat: Mouth: Mucous membranes are moist. Pharynx: No oropharyngeal exudate or posterior oropharyngeal erythema. Eyes: General: Right eye: No discharge. Left eye: No discharge. Extraocular Movements: Extraocular movements intact. Conjunctiva/sclera: Conjunctivae normal. Pupils: Pupils are equal, round, and reactive to light. Comments: Left upper eyelid with external hordeolum noted NO drainage NO streaking No crepitus Vision grossly intact EOM intact Cardiovascular: Rate and Rhythm: Normal rate and regular rhythm. Pulses: Normal pulses. Heart sounds: Normal heart sounds. No murmur heard. No friction rub. Pulmonary: Effort: Pulmonary effort is normal. No respiratory distress. Breath sounds: Normal breath sounds. No stridor. No wheezing, rhonchi or rales. Chest: Chest wall: No tenderness. Abdominal: General: Abdomen is flat. There is no distension. Palpations: Abdomen is soft. There is no mass. Tenderness: There is no abdominal tenderness. There is no right CVA tenderness, left CVA tenderness, guarding or rebound. Hernia: No hernia is present. Musculoskeletal: General: No swelling, tenderness, deformity or signs of injury. Normal range of motion. Cervical back: Normal range of motion and neck supple. No rigidity. Right lower leg: No edema. Left lower leg: No edema. Lymphadenopathy: Cervical: No cervical adenopathy. Skin: General: Skin is warm and dry. Coloration: Skin is not jaundiced or pale. Findings: No bruising, erythema, lesion or rash. Neurological: General: No focal deficit present. Mental Status: She is alert (more content not included)...[facility]06-17-2024 History of Present illness Narrative* Navid Andrews APRN.[facility] - 08/23/2023 6:45 PM EDT This note was created using [employer]. Subjective Nicci Qureshi is a 37 year old female. 37 year old female with no PMH presents for eye complaints. Acute onset one month ago Left upper eye lid +red bump At times uncomfortable Denies loss of vision, double vision or blurred vision Denies feelings of FB Denies fever or chills Denies drainage Denies URI sx Wear contacts and corrective lens Endorses she has allowed warm water to run on her eye, Otherwise denies seeking medical treatment for same Eye doctor is through [facility] The history is provided by the patient. No extrusion operator was used. Eye Problem This is a new problem. The current episode started 1 to 4 weeks ago. The problem occurs constantly.The problem has been unchanged. Pertinent negatives include no abdominal pain, anorexia, arthralgias, change in bowel habit, chest pain, chills, congestion, coughing, diaphoresis, fatigue, fever, headaches, joint swelling, myalgias, nausea, neck pain, numbness, rash, sore throat, swollen glands, urinary symptoms, vertigo, visual change, vomiting or weakness. Nothing aggravates the symptoms. Treatments tried: allowing warm water to run on area. The treatment provided no relief. No past medical history on file. No past surgical history on file. ALLERGIES Penicillin MEDICATIONS albuterol HFA (PROVENTIL HFA, VENTOLIN HFA) 90 mcg/actuation inhaler Inhale 2 Puffs as instructed every 4 hours as needed for wheezing/shortness of breath. cetirizine HCl (ZYRTEC ORAL) Take by mouth. albuterol HFA (PROAIR HFA) 90 mcg/actuation inhaler Inhale 2 Puffs as instructed every 6 hours as needed. fluticasone (FLONASE) 50 mcg/actuation nasal spray Use 2 Sprays in each nostril once daily. Rinse mouth after use. erythromycin (ROMYCIN) 5 mg/gram (0.5 %) ophthalmic ointment Use 1 application in the left eye fourtimes daily for 7 days. No family history on file. Social History Tobacco Use Smoking status: Never Smokeless tobacco: Never Review of Systems Constitutional: Negative for chills, diaphoresis, fatigue and fever. HENT: Negative for congestion and sore throat. Eyes: Negative for photophobia, pain, discharge, redness, itching and visual disturbance. Bump left upper eyelid Respiratory: Negative for cough. Cardiovascular: Negative for chest pain. Gastrointestinal: Negative for abdominal pain, anorexia, change in bowel habit, nausea and vomiting. Musculoskeletal: Negative for arthralgias, joint swelling, myalgias and neck pain. Skin: Negative for rash. Neurological: Negative for vertigo, weakness, numbness and headaches. Objective BP 122/63 Pulse 63 Temp 36.3 C (97.3 F) Resp 16 Wt 114.8 kg (253 lb 1.4 oz) SpO2 97% Physical Exam Vitals and nursing note reviewed. Constitutional: General: She is not in acute distress. Appearance: Normal appearance. She is normal weight. She is not ill-appearing, toxic-appearing or diaphoretic. HENT: Head: Normocephalic and atraumatic. Right Ear: Ear canal and external ear normal. Left Ear: Ear canal and external ear normal. Nose: Nose normal. No congestion or rhinorrhea. Mouth/Throat: Mouth: Mucous membranes are moist. Pharynx: No oropharyngeal exudate or posterior oropharyngeal erythema. Eyes: General: Right eye: No discharge. Left eye: No discharge. Extraocular Movements: Extraocular movements intact. Conjunctiva/sclera: Conjunctivae normal. Pupils: Pupils are equal, round, and reactive to light. Comments: Left upper eyelid with external hordeolum noted NO drainage NO streaking No crepitus Vision grossly intact EOM intact Cardiovascular: Rate and Rhythm: Normal rate and regular rhythm. Pulses: Normal pulses. Heart sounds: Normal heart sounds. No murmur heard. No friction rub. Pulmonary: Effort: Pulmonary effort is normal. No respiratory distress. Breath sounds: Normal breath sounds. No stridor. No wheezing, rhonchi or rales. Chest: Chest wall: No tenderness. Abdominal: General: Abdomen is flat. There is no distension. Palpations: Abdomen is soft. There is no mass. Tenderness: There is no abdominal tenderness. There is no right CVA tenderness, left CVA tenderness, guarding or rebound. Hernia: No hernia is present. Musculoskeletal: General: No swelling, tenderness, deformity or signs of injury. Normal range of motion. Cervical back: Normal range of motion and neck supple. No rigidity. Right lower leg: No edema. Left lower leg: No edema. Lymphadenopathy: Cervical: No cervical adenopathy. Skin: General: Skin is warm and dry. Coloration: Skin is not jaundiced or pale. Findings: No bruising, erythema, lesion or rash. Neurological: General: No focal deficit present. Mental Status: She is alert and oriented to person, place, and time. Cranial Nerves: No cranial nerve deficit. Sensory: No sensory deficit. Motor: No weakness. Coordination: Coordination normal. Gait: Gait normal. Psychiatric: Mood and Affect: Mood normal. Behavior: Behavior normal. Thought Content: Thought content normal. Judgment: Judgment normal. Assessment and Plan ASSESSMENT/PLAN: 1. Hordeolum externum of left upper eyelid - ICD9: 373.11, ICD10: H00.014 X 1 month No red flags Vision grossly intact RX Romycin ointment Warm compresses Baby shampoo F/U with eye doctor for continued sx Discussed red flags Navid Andrews APRN.COOLER WORKER [facility] NoteHNO ID: [id number] Author: ROGE VENCES MD Service: ? Author Type: Physician Type: Progress Notes Filed: 05/17/2023 09:40 Note Text: Patient presents with: Sore Throat HPI: Feeling sore throat for a couple days. Her sons tested positive for strep throat this morning. Positive symptoms: mild Cough, Sore throat, mild Nasal Congestion, Negative symptoms: Fever, Chills, Vomiting, Diarrhea, OTC: tea No past medical history on file. MEDICATIONS: Current Outpatient Medications Medication Sig albuterol HFA (PROVENTIL HFA, VENTOLIN HFA) 90 mcg/actuation inhaler Inhale 2 Puffs as instructed every 4 hours as needed for wheezing/shortness of breath. cetirizine HCl (ZYRTEC ORAL) Take by mouth. albuterol HFA (PROAIR HFA) 90 mcg/actuation inhaler Inhale 2 Puffs as instructed every 6 hours as needed. fluticasone (FLONASE) 50 mcg/actuation nasal spray Use 2 Sprays in each nostril once daily. Rinse mouth after use. No current facility-administered medications for this visit. ALLERGIES: ALLERGIES Allergen Reactions Penicillin Rash VITALS: BP 122/78 Pulse 80 Temp 36.3 ?C (97.4 ?F) Resp 21 Wt 119.5 kg (263 lb 7.2 oz) SpO2 98% PHYSICAL EXAM: GEN: Pleasant, in no acute distress. HEENT: PERRL, EOMI, conjunctiva clear Ears: canals clear. TMs without erythema, bulge, or effusion Sinuses: non-tender frontal sinus, non-tender maxillary sinuses Throat: moist mucous membranes, mild erythema, no exudate Neck: supple, no thyromegaly, no lymphadenopathy HEART: regular rate and rhythm, no murmurs LUNGS: clear to auscultation, no wheezes or crackles, no increased WOB ASSESSMENT/PLAN: 1. Sore throat - ICD9: 462, ICD10: J02.9 (primary diagnosis) 2. Exposure to strep throat - ICD9: V01.89, ICD10: Z20.818 Would like to rule out strep throat. - STREP A MOLECULAR (POC) - negative. Expectant management. Roge Vences, [facility]03-11-2024 History of Present illness Narrative* Roge Vences MD - 05/17/2023 9:26 AM EDT Patient presents with: Sore Throat HPI: Feeling sore throat for a couple days. Her sons tested positive for strep throat this morning. Positive symptoms: mild Cough, Sore throat, mild Nasal Congestion, Negative symptoms: Fever, Chills, Vomiting, Diarrhea, OTC: tea No past medical history on file. MEDICATIONS: Current Outpatient Medications Medication Sig albuterol HFA (PROVENTIL HFA, VENTOLIN HFA) 90 mcg/actuation inhaler Inhale 2 Puffs as instructed every 4 hours as needed for wheezing/shortness of breath. cetirizine HCl (ZYRTEC ORAL) Take by mouth. albuterol HFA (PROAIR HFA) 90 mcg/actuation inhaler Inhale 2 Puffs as instructed every 6 hours as needed. fluticasone (FLONASE) 50 mcg/actuation nasal spray Use 2 Sprays in each nostril once daily. Rinse mouth after use. No current facility-administered medications for this visit. ALLERGIES: ALLERGIES Allergen Reactions Penicillin Rash VITALS: BP 122/78 Pulse 80 Temp 36.3 C (97.4 F) Resp 21 Wt 119.5 kg (263 lb 7.2 oz) SpO2 98% PHYSICAL EXAM: GEN: Pleasant, in no acute distress. HEENT: PERRL, EOMI, conjunctiva clear Ears: canals clear. TMs without erythema, bulge, or effusion Sinuses: non-tender frontal sinus, non-tender maxillary sinuses Throat: moist mucous membranes, mild erythema, no exudate Neck: supple, no thyromegaly, no lymphadenopathy HEART: regular rate and rhythm, no murmurs LUNGS: clear to auscultation, no wheezes or crackles, no increased WOB ASSESSMENT/PLAN: 1. Sore throat - ICD9: 462, ICD10: J02.9 (primary diagnosis) 2. Exposure to strep throat - ICD9: V01.89, ICD10: Z20.818 Would like to rule out strep throat. - STREP A MOLECULAR (POC) - negative. Expectant management. Roge Vences MD documented in [facility] encounterW[facility]09-29-2023 Miscellaneous Notes* Telephone Encounter - Manny Henry MA - 12/04/2022 9:40 AM EDT Left VM instructing patient to return call to receive results. Manny Henry MA * Telephone Encounter - Manny Henry MA - 12/04/2022 9:39 AM EDT ----- Message from Larisa Liang APRN.COOLER WORKER sent at 12/04/2022 9:05 AM EDT ----- Please advise patient the COVID, flu, and RSV test is negative. (Not viewed in MyChart). documented in this encounterW[facility]09-27-2023 NoteHNO ID: [id number] Author: Chelo Wing RT(R) Service: ? 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 FALL SCREENING: Has the patient had 2 falls in the last year or 1 fall with injury or currently using an Ambulatory Assistive Device (Walker, Cane, Wheelchair, Crutches, etc.)? No PATIENT GENDER DATA: Female. status: : No status: NO. PATIENT RELEVANT IMPLANT DATA REVIEWED: Yes RADIOLOGY DEPARTMENT: General X-ray: Exam(s) Completed: Chest X-Ray PERIPHERAL IV DATA: Not applicable SIGNED BY: RT Colin(R) December 02, 2022 5:22 [facility]09-27-2023 NoteHNO ID: [id number] Author: Christine Torres APRN.COOLER WORKER Service: ? Author Type: Nurse Practitioner Type: Progress Notes Filed: 12/02/2022 5:52 PM Note Text: Subjective HPI HPI Nicci Qureshi is a 37 year old female who presents today for CC of cough, congestion, sneezing. This started 4 days ago. Has tried otc medication for relief. Symptoms are worsened by nothing. Risk factors sick exposures at home. Nonsmoker. Denies possibility of being . .Patient presents with: Cough: Cough, congestion and sneezing x 4 days History reviewed. No pertinent past medical history. No past surgical history on file. ALLERGIES Penicillin MEDICATIONS cetirizine HCl (ZYRTEC ORAL) Take by mouth. albuterol HFA (PROAIR HFA) 90 mcg/actuation inhaler Inhale 2 Puffs as instructed every 6 hours as needed. fluticasone (FLONASE) 50 mcg/actuation nasal spray Use 2 Sprays in each nostril once daily. Rinse mouth after use. No family history on file. Social History Tobacco Use Smoking status: Never Smokeless tobacco: Never Review of Systems Constitutional: Positive for malaise/fatigue. Negative for fever. HENT: Positive for congestion and sore throat. Negative for ear pain and nosebleeds. Respiratory: Positive for cough and sputum production. Negative for shortness of breath and wheezing. Cardiovascular: Negative for chest pain. Gastrointestinal: Negative for diarrhea and vomiting. Musculoskeletal: Negative for neck pain. Skin: Negative for itching and rash. Objective Blood pressure 118/82, pulse 86, temperature 36.8 ?C (98.2 ?F), temperature source Tympanic, resp. rate 18, weight 116.8 kg (257 lb 9.6 oz), SpO2 97 %. Physical Exam Constitutional: General: She is not in acute distress. Appearance: She is not toxic-appearing or diaphoretic. HENT: Head: Normocephalic and atraumatic. Right Ear: External ear normal. Nose: Nose normal. Mouth/Throat: Pharynx: Uvula midline. No pharyngeal swelling, oropharyngeal exudate, posterior oropharyngeal erythema or uvula swelling. Eyes: General: Lids are normal. No scleral icterus. Right eye: No discharge. Left eye: No discharge. Conjunctiva/sclera: Conjunctivae normal. Pupils: Pupils are equal, round, and reactive to light. Neck: Trachea: Trachea normal. Cardiovascular: Rate and Rhythm: Normal rate and regular rhythm. Heart sounds: Normal heart sounds. Pulmonary: Effort: Pulmonary effort is normal. Breath sounds: Normal breath sounds. Musculoskeletal: Cervical back: Normal range of motion and neck supple. Lymphadenopathy: Cervical: No cervical adenopathy. Right cervical: No superficial cervical adenopathy. Left cervical: No superficial cervical adenopathy. Skin: Findings: No rash. Neurological: Mental Status: She is alert and oriented to person, place, and time. ASSESSMENT/PLAN: 1. URI, acute - ICD9: 465.9, ICD10: J06.9 (primary diagnosis) - Discussed viral etiology and rationale for treatment. - Symptomatic treatment with prn analgesia - Supportive care with fluids and rest - Follow up in 3-5 days if symptoms persist or sooner if worsening of symptoms - PREDNISONE 20 MG TABLET - BENZONATATE 100 MG CAPSULE - ALBUTEROL SULFATE HFA 90 MCG/ACTUATION AEROSOL INHALER 2. Acute cough - ICD9: 786.2, ICD10: R05.1 Xray negative - XR CHEST 2V FRONTAL/LAT IMPRESSION: No acute radiographic abnormality. Dictated by : JOSÉ FAY MD - COVID AND INFLUENZA A/B AND RSV NAAT, ROUTINE - COVID NAAT, UPPER RESPIRATORY, ROUTINE - ROUTINE FLU A/B + RSV Christine Torres APRN.CNPChillicothe Va Medical CenterEvaluation note* Diagnosis Sore throat- Primary Acute pharyngitis Exposure to strep throat Contact with or exposure to other communicable diseases documented [facility]* Diagnosis Hordeolum externum of left upper eyelid- Primary Hordeolum externum documented in this encounter [facility]* Diagnosis Onset Date Resolution Status Admit Date Breast lump in female acute July 19, 2024 7:01am Encounter for well woman jose miguel ozuna with routine gynecological exam acute July 062024 7:01am [facility] Work Phone: Reason for referral (narrative)No reason for referral information availableBlKaiser [facility] Work Phone: Summary Purpose Family History No Family History Records Found Relationship Condition Age at Onset Recorded Date/T spike grandmother Malignant neoplasm of breast Unknown father Cardiac disease Unknown Hypertension Unknown Advance Directives No Advanced Directives Records FoundNo Advanced Directives Records Found Chief Complaint and Reason for Visit Chief Complaint Admit Date 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) July 19, 2024 7:01a m PAP IG HPV APTIMA July 19, 2024 4:53p m Reason for Visit Admit Date Breast lump in female July 19, 2024 7:0 1am Encounter for well woman exam with kait martin gynecological exam July 19, 2024 7:01am Chief Complaint Admit Date 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) July 19, 2024 7:01a m Additional Source Comments Source Comments (unrecognize d section and content) In the event this informatio n is protected by the Federal Confidentiality of Alcohol and Drug Abuse Patient Records regulations: The Federal rules restrict any use of the information to criminally investigate or prosecute any alcohol or drug abuse patient.[facility] HospitalIn the event this information is protected by the Federal Confidentiality of Alcohol and Drug Abuse Patient Records regulations: The Federal rules restrict any use of the information to criminally investigate or prosecute any alcohol or drug abuse patient.[facility] HospitalIn the event this information is protected by the Federal Confidentiality of Alcohol and Drug Abuse Patient Records regulations: The Federal rules restrict any use of the information to criminally investigate or prosecute any alcohol or drug abuse patient.[facility] HospitalIn the event this information is protected by the Federal Confidentiality of Alcohol and Drug Abuse Patient Records regulations: The Federal rules restrict any use of the information to criminally investigate or prosecute any alcohol or drug abuse patient.[facility] Reason for Visit (unrecogniz ed section and content) Reason Comments Results Reason Comments Sore Throat Reason Comments Eye Problem Possible stye on lef t eye x1 month INFORMATION SOURCE (unrecogn ized section and content) DATE CREATED AUTHOR 08/25/2023 [facility] DATE CREATED AUTHOR AUTHOR'S ORGANIZ ATION 08/09/2024 [facility] Care Teams (unrecognized sec tion and content) Team Status: Active Member Role Status Dates No Primary Care Physician Family Provider Active No Primary Care Physician Primary Care Provider Active Team Status: Inactive Member Role Status Dates No Primary Care Physician Primary Care Provider Active Start: July 19, 2024 End: July 19, 2024 No Primary Care Physician Referring Provider Active Start: July 19, 2024 End: July 19, 2024 Digna Mcdaniel CNM Attending Provider Active S tart: July 19, 2024 End: July 19, 2024 Team Status: Active Member Role Status Dates No Primary Care Physician Primary Care Provider Active Team Status: Inactive Member Role Status Dates No Primary Care Physician Primary Care Provider Active Start: July 19, 2024 End: July 19, 2024 Digna Mcdaniel CNM Attending Provider Active S tart: July 19, 2024 End: July 19, 2024 Digna Mcdaniel CNM Referring Provider Active S tart: July 19, 2024 End: July 19, 2024 Goals (unrecognized section and content) Goals may be documented in a n alternate sectionGoals may be documented in an alternate section FOR RECORDS PERTAINING TO PATIENTS WHO ARE OR HAVE BEEN ENROLLED IN A CHEMICAL DEPENDENCY/SUBSTANCEABUSE PROGRAM, SOME INFORMATION MAY BE OMITTED. This clinical summary was aggregated from multiple sources. Caution should be exercised in using it in the provision of clinical care. This summary normalizes information from multiple sources, and as a consequence, information in this document may materially change the coding, format and clinical context of patient data. In addition, data may be omitted in some cases. CLINICAL DECISIONS SHOULD BE BASED ON THE PRIMARY CLINICAL RECORDS. [facility] ComplexA[facility]. provides no warranty or guarantee of the accuracy or completeness of information in this document.
== END | disposition home or self-care (01) ==
LOC: OPBI 13:11
PROVIDERS: Referring Provider Advanced Practice Midwife; Visit Provider Advanced Practice Midwife
DX: Z12.31 Encounter for screening mammogram for malignant neoplasm of breast (principal)
CPT/HCPCS: 76536; 77063; 77067

== ENCOUNTER → 2024-08-18 | Outpatient (CLI) | payer MEDICAID, SELFPAY ==
--- NOTE | 2024-08-18 08:10 | US_ITS ---
PROCEDURE: BREAST LIMITED UNILATERAL 08/18/2024 REASON FOR EXAM: 38-year-old female presents for follow-up for the right breast mass visualized on examination of 08/11/2024. Family history of breast cancer in a paternal grandmother at age 82. TECHNIQUE: Targeted right breast ultrasound. COMPARISON: 08/11/2024 FINDINGS: Right breast ultrasound was targeted to the upper-outer quadrant. Follow-up examination performed of the right breast mass visualized on examination of 08/11/2024. On the present examination, there is a circumscribed oval hypoechoic mass with a fatty hilum in the right breast at 10 o'clock 5 cm from the nipple measuring 0.7 x 0.6 x 0.2 cm. This likely represents an intramammary lymph node. This is a probable correlate for the mammographic finding. Also, there is an incidental a cyst in the right breast at 10 o'clock 1 cm from the nipple measuring 0.7 x 0.6 x 0.2 cm. Otherwise, there are no suspicious sonographic findings in the upper-outer right breast. US/Breast Limited Unilateral IMPRESSION: Benign right breast intramammary lymph node and right breast cyst. Follow-up code: Routine Follow-up Reading Location: [id number]
== END | disposition home or self-care (01) ==
LOC: OPUS 08:07
PROVIDERS: Referring Provider Advanced Practice Midwife; Visit Provider Advanced Practice Midwife
DX: N63.0 Unspecified lump in unspecified breast (principal)
CPT/HCPCS: 76642